=== PATIENT | male | born 1950 | race Caucasian/White ===

== ENCOUNTER 2017-12-12 21:57 | Emergency (ER) | payer OTHER ==
[~2017-12-12] VITALS: Ht 167.6 cm; Wt 86.6 kg
--- NOTE | 2017-12-12 23:21 | RADIOLOGY REPORT ---
EXAMINATION: XR ANKLE, LEFT CLINICAL INFORMATION: Bimalleolar swelling and tenderness. COMPARISON: None TECHNIQUE: AP, lateral, and mortise views of the left ankle. FINDINGS: There is a minimally displaced fracture of the lateral malleolus, extending to the ankle mortise. Slight lateral displacement of the distal fragment. Overlying soft tissue swelling. No significant disruption of the ankle mortise. Also, there is a minimally displaced posterior malleolus fracture. No medial malleolus fracture seen. Diffuse soft tissue swelling. No ankle joint effusion. Prominent plantar heel spur. IMPRESSION: Minimally displaced fractures of the lateral and posterior malleoli. Diffuse soft tissue swelling.
--- NOTE | 2017-12-12 23:27 | CT SCAN REPORT ---
EXAMINATION: CT HEAD WITHOUT CONTRAST CLINICAL INFORMATION: Fall. Head strike. COMPARISON: None TECHNIQUE: Contiguous axial imaging was performed from the skull base to vertex without intravenous administration of contrast. DLP: 625.74 mGy-cm FINDINGS: There is no evidence of acute intracranial hemorrhage or territorial infarction. No abnormal mass effect or midline shift is seen. [place] to white matter differentiation is well preserved. No extra-axial fluid collections are identified. There are vascular wall calcification of the internal carotid arteries at the carotid artery siphon bilaterally. The ventricles are normal in size. There is no abnormal attenuation within the brain parenchyma. The osseous structures and soft tissues are normal. The mastoid air cells and visualized portions of the paranasal sinuses are well aerated. IMPRESSION: No acute intracranial pathology.
[2017-12-12 23:37] VITALS: BP 192/90
[2017-12-12] MEDS ORDERED: IBUPROFEN600 M1 PO (23:42)
[2017-12-12] MEDS ORDERED: PERCOCET 5-3251 EACH PO (23:42)
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
== END 2017-12-13 00:19 ==
LOC: ERH 21:57
DX: S82.62XA Displaced fracture of lateral malleolus of left fibula, initial encounter for closed fracture (principal); S09.90XA Unspecified injury of head, initial encounter; W01.0XXA Fall on same level from slipping, tripping and stumbling without subsequent striking against object, initial encounter; Y92.89 Other specified places as the place of occurrence of the external cause; Y93.89 Activity, other specified
CPT/HCPCS: 73610-LT; 96374; J1885